=== PATIENT | female | born 1985 | race Caucasian/White ===

== ENCOUNTER 2016-09-12 13:00 | Emergency (ER) | payer MEDICAID ==
[~2016-09-12] VITALS: Ht 157.5 cm; Wt 94.3 kg
[~2016-09-12 13:00] MED LIST: ACET325T51 PO; AMOX500T2 PO; CLON0.5T PO; CYCL-375 PO; ESCI20TA30 PO; GABA-338 PO; HYDR25TA85 PO; IBUP-1547 PO; ONDA4TAB7 PO; PRAZ2CAP2 PO
--- OUTSIDE RECORDS SUMMARY | 2016-09-12 13:05 | XMS REPORT | Continuity of Care Document ---
Author Author [facility] Organization [facility] Address Unknown Phone Unavailable Care Team Providers Care Voip Network Engineer Name Role Phone JULIOCESARRAMIRO APRN Primary Care Physician [phone] Insurance Providers Guarantor Andria Brown Address [address] [place] [id number] Email DENIED 16 Payer [facility] [employer] Policy Number [id number] Subscriber's Name Andria Brown Relationship 18 Self Group Number [id number] Effective Date 16 Expiration Date 16 Advance Directives Directive Response Recorded Date/Time Advanced Directives Type None 10/09/13 4:25pm Chief Complaint and Reason for Visit Chief Complaint Toothache Reason for Visit Dental caries [id number] Problems Active Problems Medical Problem Onset Date Status Abscess of left thigh Unknown Acute Acute cholecystitis Unknown Acute Bacterial vaginosis Unknown Acute Bilateral pleural effusion Unknown Acute Bronchitis Unknown Acute Bronchitis Unknown Acute Contusion Unknown Acute Contusion, flank Unknown Acute Dental abscess Unknown Acute Hidradenitis suppurativa Unknown Acute Hypokalemia Unknown Acute Low back pain Unknown Acute PELVIC PAIN Unknown Acute Pain, dental Unknown Acute Patient left without being seen Unknown Acute Pleural effusion on left Unknown Acute Splinter of finger without major open wound or infection Unknown Acute UTI Unknown Acute dental fracture Unknown Acute Past Problems Medical Problem Onset Date Abdominal pain Unknown Abdominal pain Unknown Acute exacerbation of chronic bronchitis Unknown Acute left flank pain Unknown Contusion Unknown Dental caries Unknown Foot fracture, left Unknown Left flank pain Unknown Left sided abdominal pain Unknown Strep pharyngitis Unknown Medications Current Home Medications Medication Dose Units Route Directions Days Qty Instructions Start Date Acetaminophen 325 Mg Tablet 650 Mg Oral Every 4 Hours as needed for Pain 05/22/16 Amoxicillin 500 Mg Tablet 500 Mg Oral Three Times A Day 10 Days [address] Jon Morgan Curing Room Supervisor [facility] [address] [facility] [phone] 09/07/16 Clonazepam (Klonopin) 0.5 Mg Tablet 0.5 Mg Oral Twice A Day as needed for Anxiety 12/26/14 Cyclobenzaprine Hcl 10 Mg Tablet 10 Mg Oral Three Times A Day 05/31 Escitalopram Oxalate 20 Mg Tablet 20 Mg Oral Bedtime 12/03/15 Gabapentin 300 Mg Capsule 600 Mg Oral Three Times A Day 08/16/15 Hydroxyzine Hcl 25 Mg Tablet 25 Mg Oral Four Times Daily as needed for Prn Orders 10/29/15 Ibuprofen 800 Mg Tablet 800 Mg Oral Three Times A Day 08/12/14 Ondansetron (Zofran Odt) 4 Mg Tab.rapdis 4 Mg Oral Every 4 Hours as needed for Nausea 07/28/16 Prazosin Hcl 2 Mg Capsule 2 Mg Oral Bedtime 07/28/16 Past Home Medications Medication Directions Ordered Status Acetaminophen (Tylenol) 325 Mg Tablet, 650 06/04/14 Discontinued Albuterol (Ventolin) 2.5 Mg/3 Ml Inha, 2.5 Mg Aerosol Tx. As Needed 12/25/12 Discontinued Amoxicillin Trihydrate (Amoxicillin) 250 Mg Capsule, 02/09/10 Discontinued Benzonatate (Tessalon Perle) 100 Mg Capsule, 100 Mg Oral Three Times A Day as needed for Cough 06/04/14 Discontinued Cephalexin (Keflex) 500 Mg Capsule, 1 Cap Oral Three Times A Day for Uri Discontinued Cyclobenzaprine Hcl (Flexeril) 10 Mg Tablet, 10 Mg Oral Daily 12/24/12 Discontinued Duloxetine Hcl (Cymbalta) 30 Mg Capsule.dr, 30 Mg Oral Daily 12/10/11 Discontinued Ferrous Sulfate (Iron) 1 Tab Tablet, 1 Tab Oral Daily 06/21/09 Discontinued Hydrocodone Bit/Acetaminophen (Lortab 5) 1 Tab Tablet, 02/14/10 Discontinued Hydrocodone Bit/Acetaminophen (Lortab 5) 1 Tab Tablet, 1 Tab Oral As Needed 08/23/08 Discontinued Ibuprofen , 11/25/08 Discontinued Keflex , Oral 12/25/12 Discontinued Methylprednisolone (Medrol) 4 Mg Tab.ds.pk, 4 Mg Oral As Directed as needed for Bronchitis 06/04/14 Discontinued Naproxen 500 Mg Tablet, 500 Mg Oral Twice A Day 12/10/11 Discontinued Naproxen Sodium (Aleve) 220 Mg Tablet, 2 Tab Oral Twice A Day 12/24/13 Discontinued None , 12/11/09 Discontinued Salsalate 750 Mg Tablet, 750 Mg Oral Twice A Day 05/24/09 Discontinued Triamcinolone Acetonide (Nasacort Aq) 16.5 Gm [place], 16.5 Gm Nasal Daily 02/23 Discontinued Social History Social History Problem Response Recorded Date/Time Onset Date Status Hx Substance Use Y 6 YRS AGO--pt denies 08/02/2016 7:19pm Not Applicable Not Applicable Hx Alcohol Use Yes 08/02/2016 7:19pm Not Applicable Not Applicable Has the pt used tobacco in the last 12 months Yes 03/02/2016 6:50am Not Applicable Not Applicable Tobacco Usage smoke 05/25/2014 4:32pm Not Applicable Not Applicable Query Response Start Date Stop Date Smoking Status Current every day smoker Hospital Discharge Instructions No hospital discharge instructions. Plan of Care Discharge Date 09/07/16 10:35am Disposition 01 DISCHARGED HOME, SELF-CARE Condition at Discharge Stable Instructions/Education Provided Dental Caries (ED) Toothache (ED) Prescriptions See Medication Section Referrals RAMIRO GANDARA ENVIRONMENTAL CONSULTANT Address: [address] [phone] [employer] [facility] CONSULTANT Address: [address] [place] [address] Additional Instructions/Education Amoxicillin as directed. Use ibuprofen up to 800 mg every 8 hours. Use dilute saltwater rinses as needed for comfort. Follow with primary care clinic and dentist as soon as possible. Functional Status No functional status results. Allergies, Adverse Reactions, Alerts Allergen Type Severity Reaction Status Last Updated tramadol HCl Adverse Reaction Unknown NAUSEA Active 09/07/16 Adhesive Allergy Mild Active 09/07/16 adhesive tape Allergy Mild Active 09/07/16 PLASTIC TAPE Adverse Reaction Mild GETS RED Active 05/23/09 Immunizations Query Response on File Recorded Date/Time Hx Influenza Vaccination No 03/02/16 6:50am Hx Pneumococcal Vaccination Y 201403/02/16 6:50am Hx Tetanus, Diptheria, Pertussis No 02/27/15 2:30pm Hx Influenza Vaccination No 03/02/16 6:50am Hx Tetanus Diptheria No 02/27/15 2:30pm Hx Tetanus, Diptheria, Pertussis No 02/27/15 2:30pm Hx Tetanus Toxoid Vaccination No 11/13/08 2:36am DTaP Vaccine History 2015 09/07/16 10:06am Influenza Vaccine Hx 2015 09/07/16 10:06am Tdap Vaccine Hx SKIN INTACT 07/28/16 3:20pm Vital Signs Acute Vital Signs Vital Response Date/Time Temperature (Fahrenheit) 97.9 deg F (96.8 - 99.1) 09/07/2016 10:08am Temperature (Calculated Celsius) 36.66270 degrees C (36.0 - 37.3) 09/07/2016 10:08am Pulse Rate (adult) 90 bpm (60 - 100) 09/07/2016 10:08am Respiratory Rate 16 breaths/min (10 - 20) 09/07/2016 10:08am O2 Sat by Pulse Oximetry 99 % (90 - 100) 09/07/2016 10:08am Blood Pressure 135/90 mm Hg 09/07/2016 10:08am Height (Feet) 5 feet 08/02/2016 7:05pm Height (Inches) 62.40 inches 09/07/2016 10:08am Weight (Kilograms) 93.400 kg 09/07/2016 10:08am Body Mass Index (BMI) 37.0 09/07/2016 10:08am Results Laboratory Results Test Name Result Units Flags Reference Collection Date/Time Result Date/ Time Comments Urine Collection Type VOIDED-NOT CC-MIDSTR 08/02/2016 7:57pm 2016 8:22pm Urine Color YELLOW YELLOW 08/02/2016 7:57pm 08/02/2016 8:22pm Urine Turbidity CLEAR CLEAR 08/02/2016 7:57pm 08/02/2016 8:22pm Urine Specific Star 1.020 1.015-1.025 08/02/2016 7:57pm 2016 8:22pm Urine pH 6.0 5.0-8.0 08/02/2016 7:57pm 08/02/2016 8:22pm Urine Leukocyte Esterase NEGATIVE NEGATIVE 08/02/2016 7:57pm 2016 8:22pm Urine Nitrite NEGATIVE NEGATIVE 08/02/2016 7:57pm 08/02/2016 8:22pm Urine Protein NEGATIVE NEGATIVE 08/02/2016 7:57pm 08/02/2016 8:22pm Urine Glucose (UA) NEGATIVE NEGATIVE 08/02/2016 7:57pm 08/02/2016 8: 22pm Urine Ketones NEGATIVE NEGATIVE 08/02/2016 7:57pm 08/02/2016 8:22pm Urine Urobilinogen 0.2 EU/DL NORMAL 08/02/2016 7:57pm 08/02/2016 8: 22pm Urine Bilirubin NEGATIVE NEGATIVE 08/02/2016 7:57pm 08/02/2016 8: 22pm Urine Blood NEGATIVE NEGATIVE 08/02/2016 7:57pm 08/02/2016 8:22pm Urinalysis Comment MICROSCOPIC NOT IND. 08/02/2016 7:57pm 2016 8:22pm Procedures Procedure Status Date Provider(s) Application lower leg splint Completed 07/28/16 JOSE KAT DO X-ray exam of ankle Completed 07/28/16 X-ray exam of foot Completed 07/28/16 Emergency dept visit Completed 07/28/16 Urinalysis auto w/o scope Completed 08/02/16 Ther/proph/diag inj iv push Completed 08/02/16 Tx/pro/dx inj new drug addon Completed 08/02/16 Emergency dept visit Completed 08/02/16 832704"INJECTION, HYDROMORPHONE, UP TO 4 MG" Completed 08/02/16 [id number]"INJECTION, ONDANSETRON HYDROCHLORIDE, PER 1 MG" Completed 08/02/16 Encounters Encounter Location Arrival/Admit Date Discharge/Depart Date Attending Provider Departed Emergency Room [facility] 09/07/16 10:00am 09/07/16 10: 35am NANCY SUMMERS APRN Departed Emergency Room [facility] 08/02/16 7:01pm 08/02/16 9: 18pm OCTOBERFRANCY DO Departed Emergency Room [facility] 07/28/16 3:15pm 07/28/16 4: 34pm JOSE KAT DO Recent Diagnosis
[2016-09-12 13:08] VITALS: Ht 157.5 cm; Wt 94.3 kg
[2016-09-12] MEDS ORDERED: ESCI10TA47 PO (13:28)
[2016-09-12] MEDS ORDERED: PRAZ1CAP5 PO (13:29)
[2016-09-12] MEDS ORDERED: NORMAL SALINE 1,000 ML IV ONE ×2 (13:30→15:30)
[2016-09-12] MEDS ORDERED: ONDANSETRON 4mg/2ml INJECTION IV ONE (13:30)
[2016-09-12] MEDS ORDERED: GABA-305 PO (13:30)
[2016-09-12 13:54] LABS: BASOPHILS % (AUTO) 0.2 % (0-2); EOSINOPHILS # (AUTO) 0.2 T/MM3 (0-0.5); EOSINOPHILS % (AUTO) 1.9 % (0-4); HCT - HEMATOCRIT 41.2 % (36-46); HGB - HEMOGLOBIN 13.9 GM/DL (12-16); IMMATURE GRANULOCYTE # (AUTO) 0.01 T/MM3 (0.00-0.03); IMMATURE GRANULOCYTE % (AUTO) 0.1 % (0.0-0.5); LYMPHOCYTES % (AUTO) 21.6 % (23-45); MEAN CORPUSCULAR HGB 29.4 UUG (26-34); MEAN CORPUSCULAR HGB CONC(MCHC 33.7 GM/DL (31-37); MEAN CORPUSCULAR VOLUME 87.3 UM3 (80-100); MEAN PLATELET VOLUME 10.9 UM3 (9.4-12.4); MONOCYTES # (AUTO) 0.4 T/MM3 (0-0.8); MONOCYTES % (AUTO) 3.9 % (0-9.0); NEUTROPHILS #(AUTO)-ABSOLUTE 6.7 T/MM3 (1.8-7.7); NEUTROPHILS % (AUTO) 72.3 % (33-66); RED BLOOD COUNT 4.72 M/MM3 (4.00-5.20); WBC - WHITE BLOOD COUNT 9.3 T/MM3 (4.5-11.0)
[2016-09-12 13:55] LABS: BLOOD, URINE NEGATIVE (NEGATIVE); COLOR,URINE ORANGE (YELLOW); LEUKOCYTE ESTERASE ,URINE NEGATIVE (NEGATIVE)
[2016-09-12 13:58] LABS: NITRITE,URINE NEGATIVE (NEGATIVE)
[2016-09-12] MEDS ORDERED: HYDROMORPHONE 2mg/ml INJECTION IV ONE ×2 (14:00→15:30)
[2016-09-12 14:05] LABS: ALBUMIN 4.4 G/DL (3.5-5.0); ALBUMIN/GLOBULIN RATIO 1.2 RATIO (1.1-2.2); ALKALINE PHOSPHATASE 82 U/L (38-126); ALT (SGPT) 30 U/L (9-52); ANION GAP 11 MEQ/L (5-15); AST (SGOT) 22 U/L (14-36); BUN/CREATININE RATIO 13 RATIO (6-26); CALCIUM 10.7 MG/DL (8.4-10.2); CHLORIDE 110 MEQ/L (98-107); CO2 - CARBON DIOXIDE 24 MEQ/L (22-30); CREATININE 0.9 MG/DL (0.7-1.2); GLOMERULAR FILTRATION RATE 74; GLUCOSE 94 MG/DL (65-110); POTASSIUM 4.2 MEQ/L (3.6-5); SODIUM 145 MEQ/L (134-144); TOTAL PROTEIN 8.2 G/DL (6.3-8.2)
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
[2016-09-12 14:20] LABS: LIPASE 109 U/L (23-300)
[2016-09-12] MEDS ORDERED: IOHEXOL 300 MG/ML 100ml INJECTION ONE (14:24)
[2016-09-12] MEDS ORDERED: NORMAL SALINE 100 ML ONE (14:24)
[2016-09-12] MEDS ORDERED: SALINE FLUSH 10ml SYRINGE ONE (14:24)
--- NOTE | 2016-09-12 14:25 | NUR ---
CT PT TO CT BY CART AT THIS TIME.
--- NOTE | 2016-09-12 14:44 | NUR ---
RETURN PT RETURNED FROM CT BY CART AT THIS TIME.
--- NOTE | 2016-09-12 14:49 | NUR ---
STATUS PT REPORTS PAIN HAD IMPROVED AFTER DILAUDID ADM. STATES "IT TOOK THE EDGE OFF." REPORTS PAIN IS STARTING TO WORSEN AGAIN, PAIN CURRENTLY 12/24. PROVIDER NOTIFIED.
--- NOTE | 2016-09-12 15:08 | DI ---
Indication: ITS.REASON: L sided pain PROCEDURE: CT ABD/PELVIS W/CONTRAST ONLY: Encounter: Initial Comparison: CT abdomen and pelvis dated April 06, [address] dated May 22, 2016 Technique: Axial CT images were performed through the abdomen and pelvis after the administration of intravenous contrast. Coronal and sagittal two-dimensional reformats. Automated Exposure Control and Iterative Reconstruction dose reducing techniques were utilized. Contrast: Omnipaque 300 100 mL Findings: Tiny diaphragmatic hernia with herniation of a portion of the right lobe of the liver noted incidentally. Left lower lobe airspace consolidation is similar to the most recent comparison and probably represents an area of pulmonary scarring. The liver is homogeneous without focal mass. The gallbladder is surgically absent. The spleen, pancreas and adrenal glands are within normal limits. The kidneys are normal. The bladder is normal. Uterus is unremarkable. No free fluid. No evidence of a now obstruction. No diverticulosis or diverticulitis. Index is gas-filled and normal. There is fecalization of the distal small bowel suggesting chronic slow motility. Bone windows are unchanged. Impression: No acute disease process seen. 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 .
[2016-09-12] MEDS ORDERED: OXYC1TAB8 PO (15:36)
[2016-09-12] MEDS ORDERED: ONDA4TAB7 PO (15:36)
[2016-09-12 15:47] VITALS: BP 147/70; PULSE 98; RESP 16; TEMP 98.7; O2SAT 97
--- NOTE | 2016-09-12 15:47 | NUR ---
DISCHARGE WRITTEN INSTRUCTIONS WITH PERCOCET AND ZOFRAN RX REVIEWED AND SENT WITH PT. PT VERBALIZES UNDERSTANDING OF DI AND MEDICATIONS, DENIES QUESTIONS. PT REPORTS DECREASE IN PAIN TO 6/10 AFTER MED ADM. PT AMBULATES OUT OF ER WITH STEADY GAIT ACCOMP BY SO AT THIS TIME.
== END 2016-09-12 15:47 | disposition home or self-care (01) ==
LOC: ED 13:00
DX: R10.12 Left upper quadrant pain (principal)
CPT/HCPCS: 74177; 80053; 81003; 81025; 83690; 85025; 93005; 96361; 96374; 96375; 96376; 99284; J1170; J2405; J7030; J7050; Q9967